=== PATIENT | male | born 1965 | race Hispanic/Latino ===

== ENCOUNTER 2017-01-04 19:46 | Inpatient (IN) | payer MEDICAID ==
[2017-01-04 19:48] VITALS: BMI 35.4
[2017-01-04 20:12] LABS: ADD MANUAL DIFF? NO
[2017-01-04 20:19] LABS: BASO # 0.03 K/mm3 (0.0-2.0); BASO % 0.3 % (0.0-3.0); EOS # 0.1 (0.0-0.7); EOS % 1.2 % (1.5-5.0); GRAN # 6.27 (1.4-6.5); GRAN % 69.5 % (50.0-68.0); LYMPH # 1.7 (1.2-3.4); LYMPH % 19.2 % (22.0-35.0); MEAN CELL VOLUME 85.2 fL (80.0-105.0); MEAN CORPUSCULAR HEMOGLOBIN 29.1 pg (25.0-35.0); MEAN CORPUSCULAR HGB CONC 34.1 g/dl (31.0-37.0); MEAN PLATELET VOLUME 9.7 fl (7.0-11.0); MONO # 0.9 (0.1-0.6); MONO % 9.8 % (1.0-6.0); PLATELET COUNT 294 10^3/uL (120.0-450.0); RED CELL DISTRIBUTION WIDTH 13.6 % (11.5-14.5)
--- NOTE | 2017-01-04 20:20 | ED PDOC ---
Arrival/HPI - General Chief Complaint: Chest Pain Time Seen by Provider: 01/04/17 19:49 Historian: Patient - History of Present Illness Narrative History of Present Illness (Text): 01/04/17 20:22 An 81 year old female, whose past medical history includes hypertension, presents to the emergency department complaining of chest pain worsening since yesterday. Patient describes it left sided squeezing pain. Patient notes had taken a stress test 10 years ago, which was negative. Patient reports dyspnea but denies any cough, fevers or any other complaints at this time. Patient noted taken aspirin and nitro prior to arrival. Time/Duration: Other (yesterday) Symptom Onset: Sudden Symptom Course: Unchanged Activities at Onset: Rest Context: Home Past Medical History - Provider Review Nursing Documentation Reviewed: Yes - Pulmonary Hx Respiratory Disorders: No - Neurological Hx Neurological Disorder: No - Hematological/Oncological Hx Blood Disorders: No - Integumentary Hx Dermatological Disorder: No - Musculoskeletal/Rheumatological Hx Musculoskeletal Disorders: No - Gastrointestinal Hx Gastrointestinal Disorders: No - Genitourinary/Gynecological Hx Genitourinary Disorders: No - Psychiatric Hx Psychophysiologic Disorder: No Hx Substance Use: No - Anesthesia Hx Anesthesia: No Family/Social History - Physician Review Nursing Documentation Reviewed: Yes Family/Social History: No Known Family HX Smoking Status: Never Smoked Hx Alcohol Use: No Hx Substance Use: No Allergies/Home Meds Allergies/Adverse Reactions: Allergies No Known Allergies Allergy (Verified 01/04/17 19:48) Home Medications: Home Meds Medication Instructions Recorded Confirmed No Known Home Med 01/04/17 01/04/17 Review of Systems - Review of Systems Constitutional: Normal. absent: Fevers Eyes: Normal ENT: Normal Respiratory: absent: Cough Cardiovascular: Chest Pain, Other (dyspnea) Gastrointestinal: Normal Genitourinary Male: Normal Musculoskeletal: Normal Skin: Normal Neurological: Normal Endocrine: Normal Hemo/Lymphatic: Normal Psychiatric: Normal Physical Exam Vital Signs Reviewed: Yes Vital Signs Temp Pulse Resp BP Pulse Ox 01/04/17 19:56 99.3 F 16 L 112 H 108/69 94 L Temperature: Afebrile Blood Pressure: Normal Pulse: Tachycardic Respiratory Rate: Normal Appearance: Positive for: Non-Toxic, Comfortable, Other (obese) Pain Distress: None Mental Status: Positive for: Alert and Oriented X 3 - Systems Exam Head: Present: Atraumatic, Normocephalic Pupils: Present: PERRL Extroacular Muscles: Present: EOMI Conjunctiva: Present: Normal Mouth: Present: Moist Mucous Membranes Neck: Present: Normal Range of Motion Respiratory/Chest: Present: Clear to Auscultation, Good Air Exchange. No: Respiratory Distress, Accessory Muscle Use Cardiovascular: Present: Regular Rate and Rhythm, Normal S1, S2. No: Murmurs Abdomen: Present: Normal Bowel Sounds. No: Tenderness, Distention, Peritoneal Signs Back: Present: Normal Inspection Upper Extremity: Present: Normal Inspection. No: Cyanosis, Edema Lower Extremity: Present: Normal Inspection. No: Edema Neurological: Present: GCS=15, CN II-XII Intact, Speech Normal Skin: Present: Warm, Dry, Normal Color. No: Rashes Psychiatric: Present: Alert, Oriented x 3, Normal Insight, Normal Concentration Medical Decision Making ED Course and Treatment: 01/04/17 20:16 Impression: A 51 year old male with chest pain. Differential Diagnosis included but are not limited to: r/o acs, pe. Plan: -- EKG -- chest xray -- labs -- Urinalysis -- Reassess and disposition Progress Notes: Patient noted had taken aspirin and nitro [facility]. On reassessment, heparin started. Patient is pain free. Dr. Brannon accepts patient to be admitted to Telemetry. dimer neg. pe less likely 01/04/17 22:34 - Lab Interpretations Lab Results: 01/04/17 20:03 01/04/17 20:03 Lab Results 01/04/17 21:15: Urine Color Yellow, Urine Appearance Sl cloudy, Urine pH 6.0, Ur Specific [place] >= 1.030, Urine Protein 30 H, Urine Glucose (UA) Negative, Urine Ketones Negative, Urine Blood Large H, Urine Nitrate Negative, Urine Bilirubin Negative, Urine Urobilinogen 0.2, Ur Leukocyte Esterase Trace H, Urine RBC Tntc, Urine WBC 15 - 20, Ur Epithelial Cells 0 - 2, Calcium Oxalate Crystal Few, Urine Bacteria Few 01/04/17 20:52: PT 10.7, INR 0.99, APTT 28.5, D-Dimer, Quantitative 0.35 01/04/17 20:03: Sodium 138, Potassium 4.2, Chloride 102, Carbon Dioxide 27, Anion Gap 13, BUN 14, Creatinine 0.9, Est GFR ( Amer) > 60, Est GFR (Non- Af Amer) > 60, Random Glucose 110, Calcium 9.4, Magnesium 1.8, Total Bilirubin 0.4, AST 39, ALT 52, Alkaline Phosphatase 77, Lactate Dehydrogenase 457, Total Creatine Kinase 138, Troponin I 0.24 H*, NT-Pro-B Natriuret Pep 67.5, Total Protein 8.2, Albumin 4.5, Globulin 3.7, Albumin/Globulin Ratio 1.2 01/04/17 20:03: WBC 9.0, RBC 4.81, Hgb 14.0, Hct 41.0 L, MCV 85.2, MCH 29.1, MCHC 34.1, RDW 13.6, Plt Count 294, MPV 9.7, Gran % 69.5 H, Lymph % (Auto) 19.2 L, [place] % (Auto) 9.8 H, Eos % (Auto) 1.2 L, Baso % (Auto) 0.3, Gran # 6.27, Lymph # 1.7, [place] # 0.9 H, Eos # 0.1, Baso # 0.03 I have reviewed the lab results: Yes - RAD Interpretation Radiology Orders: 01/04/17 19:59 CHEST PORTABLE [RAD] Stat - EKG Interpretation Interpreted by ED Physician: Yes Type: 12 lead EKG - Medication Orders Current Medication Orders: Acetaminophen (Tylenol 325mg Tab) 650 mg PO Q6H PRN PRN Reason: Fever >100.4 F Aspirin (Ecotrin) 81 mg PO DAILY [facility] Atorvastatin Calcium (Lipitor) 80 mg PO DIN [facility] Heparin Sodium/Sodium Chloride (Heparin 46369 Units/250ml 1/2 Normal Saline) 25 ,000 units in 250 mls @ 13.063 mls/hr IV .Q19H9M [facility]; 12 UNITS/KG/HR PRN Reason: Protocol Dextrose/Sodium Chloride (Dextrose 5%/0.9% Ns 1000 Ml) 1,000 mls @ 80 mls/hr IV .[id number] [facility] Famotidine (Pepcid 20mg/50ml Premix) 20 mg in 50 mls @ 100 mls/hr IV Q12 [facility] Lisinopril (Zestril) 2.5 mg PO DAILY [facility] Metoprolol Tartrate (Lopressor) 25 mg PO 0800,1800 [facility] Nitroglycerin (Nitrostat Sl Tab) 0.3 mg SL Q5M PRN PRN Reason: Chest pain Discontinued Medications Clopidogrel Bisulfate (Plavix) 300 mg PO STAT STA Stop: 01/04/17 21:48 Heparin Sodium (Porcine) (Heparin) 4,000 units IV ONCE ONE PRN Reason: Protocol Stop: 01/04/17 21:18 Morphine Sulfate (Morphine) 2 mg IVP STAT STA Stop: 01/04/17 21:41 Nitroglycerin (Nitrostat Sl Tab) 0.3 mg SL STAT STA Stop: 01/04/17 21:40 - Scribe Statement The provider has reviewed the documentation as recorded by the Brenda Stack Provider Scribe Attestation: All medical record entries made by the Brenda were at my direction and personally dictated by me. I have reviewed the chart and agree that the record accurately reflects my personal performance of the history, physical exam, medical decision making, and the department course for this patient. I have also personally directed, reviewed, and agree with the discharge instructions and disposition. Disposition/Present on Arrival - Present on Arrival Any Indicators Present on Arrival: No History of DVT/PE: No History of Uncontrolled Diabetes: No Urinary Catheter: No History of Decub. Ulcer: No History Surgical Site Infection Following: None - Disposition Have Diagnosis and Disposition been Completed?: Yes Diagnosis: NSTEMI (non-ST elevated myocardial infarction) Disposition: HOSPITALIZED Disposition Time: 22:35 Condition: FAIR
[2017-01-04 20:30] LABS: ALB/GLOB RATIO 1.2 (1.1-1.8); ALKALINE PHOSPHATASE 77 U/L (38-133); ALT/SGPT 52 U/L (7-56); AST/SGOT 39 U/L (15-59); BILIRUBIN,TOTAL 0.4 mg/dL (0.2-1.3); BLOOD UREA NITROGEN 14 mg/dL (7-21); CALCIUM 9.4 mg/dL (8.4-10.5); CARBON DIOXIDE 27 mmol/L (21-33); CHLORIDE 102 mmol/L (98-107); GFR AFRICAN-AMERICAN > 60; GLUCOSE,RANDOM 110 mg/dL (70-110); MAGNESIUM 1.8 mg/dL (1.7-2.2); POTASSIUM 4.2 mmol/L (3.6-5.0); SODIUM 138 mmol/L (132-148); TOTAL PROTEIN 8.2 g/dL (5.8-8.3)
[2017-01-04 20:44] LABS: TROPONIN I 0.24 ng/mL
[2017-01-04 21:14] LABS: INR 0.99 (0.93-1.08); PARTIAL THROMBOPLASTIN TIME 28.5 Seconds (23.7-30.8)
[2017-01-04 21:16] LABS: D DIMER 0.35 mg/L FEU (0-0.50)
[2017-01-04] MEDS ORDERED: Heparin25000 units/250ml 1/2NS 25,000 UNITS/250 ML BAG IV SCH (21:30)
[2017-01-04] MEDS ORDERED: Morphine 2 mg/ml ISec IVP STA (21:40)
[2017-01-04 21:41] LABS: URINE BILIRUBIN NEGATIVE (NEGATIVE); URINE BLOOD LARGE (NEGATIVE); URINE GLUCOSE (UA) NEGATIVE (NEGATIVE); URINE KETONE NEGATIVE (NEGATIVE); URINE LEUKOCYTE ESTERASE TRACE Leu/uL (NEGATIVE); URINE PROTEIN 30 mg/dL (<30 mg/dL); URINE UROBILINOGEN 0.2 E.U./dL (<1 E.U./dL)
--- NOTE | 2017-01-04 21:43 | CP.PCM.HP ---
History of Present Illness - History of Present Illness History of Present Illness: Pt is a 51yo M who has no previous medical history who is presenting to the hospital for a 2d history of constant left sided chest pain that woke him up from sleep. He denies diaphoresis, N/V/D, OLIVARES, SOB, abdominal pain, leg swelling , loss of exercise tolerance, weight loss, night sweats. FamHx: Father 70's heart attack, mother quadruple bypass in her 50's Surgeries: Denies Allergies: Denies Meds: Denies Social: lives with son, denies illicit drugs/drinking/smoking In the ED he was found to have a troponin of .24. He was started on a heparin drip, given plavix loading dose, beta dany, statin, and JO. He will be admitted to telemetry for NSTEMI. Present on Admission - Present on Admission Any Indicators Present on Admission: No History of DVT/PE: No History of Uncontrolled Diabetes: No Urinary Catheter: No Decubitus Ulcer Present: No Review of Systems - Review of Systems All systems: reviewed and no additional remarkable complaints except Past Patient History - Past Social History Smoking Status: Never Smoked - PULMONARY Hx Respiratory Disorders: No - NEUROLOGICAL Hx Neurological Disorder: No - HEMATOLOGICAL/ONCOLOGICAL Hx Blood Disorders: No - INTEGUMENTARY Hx Dermatological Problems: No - MUSCULOSKELETAL/RHEUMATOLOGICAL Hx Musculoskeletal Disorders: No - GASTROINTESTINAL Hx Gastrointestinal Disorders: No - GENITOURINARY/GYNECOLOGICAL Hx Genitourinary Disorders: No - PSYCHIATRIC Hx Psychophysiologic Disorder: No Hx Substance Use: No - SURGICAL HISTORY Hx Surgeries: No - ANESTHESIA Hx Anesthesia: No Meds Allergies/Adverse Reactions: Allergies Allergy/AdvReac Type Severity Reaction Status Date / Time No Known Allergies Allergy Verified 01/04/17 19:48 Physical Exam - Constitutional Appears: Well, Non-toxic Additional comments: Eating in bed even though i repeatedly told him that he was NPO; patient states "he is hungry" - Head Exam Head Exam: ATRAUMATIC, NORMAL INSPECTION - Eye Exam Eye Exam: EOMI - ENT Exam ENT Exam: Mucous Membranes Moist - Neck Exam Neck exam: Positive for: Full Rom. Negative for: Lymphadenopathy - Respiratory Exam Respiratory Exam: Clear to Auscultation Bilateral, NORMAL BREATHING PATTERN. absent: Rales, Rhonchi, Wheezes - Cardiovascular Exam Cardiovascular Exam: REGULAR RHYTHM, +S1, +S2 - GI/Abdominal Exam GI & Abdominal Exam: Normal Bowel Sounds, Soft. absent: Tenderness Additional comments: obese abdomen - Rectal Exam Rectal Exam: Deferred - Extremities Exam Extremities exam: Positive for: full ROM, normal inspection. Negative for: calf tenderness, pedal edema, tenderness Additional comments: pain in b/l heels - Back Exam Back exam: absent: CVA tenderness (L), CVA tenderness (R) - Neurological Exam Neurological exam: Alert, CN II-XII Intact, Oriented x3, Reflexes Normal - Psychiatric Exam Psychiatric exam: Normal Affect, Normal Mood (does not seem to have very good insight into the fact that he is indeed having a heart attack and should not be eating a meal before having a cath or the possibility that his condition might change ) - Skin Skin Exam: Warm Results - Vital Signs Recent Vital Signs: Last Vital Signs Temp 99.3 F 01/04/17 19:56 Pulse 16 L 01/04/17 19:56 Resp 112 H 01/04/17 19:56 BP 108/69 01/04/17 19:56 Pulse Ox 94 L 01/04/17 19:56 - Labs Result Diagrams: 01/04/17 20:03 01/04/17 20:03 Labs: Laboratory Results - last 24 hr 01/04/17 01/04/17 01/04/17 20:03 20:03 20:52 WBC 9.0 RBC 4.81 Hgb 14.0 Hct 41.0 L MCV 85.2 MCH 29.1 MCHC 34.1 RDW 13.6 Plt Count 294 MPV 9.7 Gran % 69.5 H Lymph % (Auto) 19.2 L [place] % (Auto) 9.8 H Eos % (Auto) 1.2 L Baso % (Auto) 0.3 Gran # 6.27 Lymph # 1.7 [place] # 0.9 H Eos # 0.1 Baso # 0.03 PT 10.7 INR 0.99 APTT 28.5 D-Dimer, Quantitative 0.35 Sodium 138 Potassium 4.2 Chloride 102 Carbon Dioxide 27 Anion Gap 13 BUN 14 Creatinine 0.9 Est GFR ( Amer) > 60 Est GFR (Non-Af Amer) > 60 Random Glucose 110 Calcium 9.4 Magnesium 1.8 Total Bilirubin 0.4 AST 39 ALT 52 Alkaline Phosphatase 77 Lactate Dehydrogenase 457 Total Creatine Kinase 138 Troponin I 0.24 H* NT-Pro-B Natriuret Pep 67.5 Total Protein 8.2 Albumin 4.5 Globulin 3.7 Albumin/Globulin Ratio 1.2 Assessment & Plan - Assessment and Plan (Free Text) Assessment: 51yo M admitted for NSTEMI NSTEMI -Heparin Drip, Plavix loading dose given; monitor PTT -Aspirin 325 given in ambulance, as well as nitro which relieved pain -JO, Statin, Beta dany given in ED; will be continued -Troponin .25, trend troponins -Telemetry -Cardiology Consult: Latricia for Cath in AM -echo ordered Proph -Heparin Drip -Pepcid IV -NPO for cath (patient keeps sneaking food, please make sure he does not eat) -f/u health maintenance exams Lipid Panel, TSH/Free T4, drug screen, Hepatitis, HIV, RPR Dr. Hector Soliz Case Discussed with Dr. Newton Brannon Decision To Admit - Pt Status Changed To: Hospital Disposition Of: Inpatient Admission - Admit Certification Admit to Inpatient:: After my assessment, the patient will require hospitalization for at least two midnights. This is because of the severity of symptoms shown, intensity of services needed, and/or the medical risk in this patient being treated as an outpatient. - . Bed Request Type: Telemetry Admitting Physician: Nina Brannon
[2017-01-04 21:46] LABS: URINE APPEARANCE SL CLOUDY (CLEAR); URINE COLOR YELLOW (YELLOW)
[2017-01-04 21:47] LABS: URINE RBC TNTC /hpf (0-2); URINE WBC 15 - 20 /hpf (0-6)
[2017-01-04 21:48] LABS: URINE BACTERIA FEW (NEG); URINE CALCIUM OXALATE CRYSTALS FEW /hpf; URINE EPITHELIAL CELLS 0 - 2 /hpf (0-5)
[2017-01-04] MEDS ORDERED: Famotidine 20mg/50ml 20 MG/50 ML BAG IV SCH (22:00)
[2017-01-04] MEDS: Dextrose 5%/0.9% NS 1,000 ML IV SCH (23:19)
[2017-01-05 04:36] LABS: ADD MANUAL DIFF? NO
[2017-01-05 04:42] LABS: ALB/GLOB RATIO 1.2 (1.1-1.8); ALKALINE PHOSPHATASE 82 U/L (38-133); ALT/SGPT 49 U/L (7-56); AST/SGOT 39 U/L (15-59); BILIRUBIN,TOTAL 0.3 mg/dL (0.2-1.3); BLOOD UREA NITROGEN 16 mg/dL (7-21); CALCIUM 9.1 mg/dL (8.4-10.5); CARBON DIOXIDE 26 mmol/L (21-33); CHLORIDE 105 mmol/L (98-107); GFR AFRICAN-AMERICAN > 60; GLUCOSE,RANDOM 99 mg/dL (70-110); POTASSIUM 3.7 mmol/L (3.6-5.0); SODIUM 140 mmol/L (132-148); TOTAL PROTEIN 7.1 g/dL (5.8-8.3)
[2017-01-05 04:49] LABS: CHOLESTEROL 156 mg/dL (130-200)
[2017-01-05 04:50] LABS: HEMATOCRIT 39.8 % (42.0-52.0); MEAN CELL VOLUME 85.6 fL (80.0-105.0); MEAN CORPUSCULAR HEMOGLOBIN 28.4 pg (25.0-35.0); MEAN CORPUSCULAR HGB CONC 33.2 g/dl (31.0-37.0); PLATELET COUNT 248 10^3/uL (120.0-450.0); RED CELL DISTRIBUTION WIDTH 14.1 % (11.5-14.5); WHITE BLOOD COUNT 8.1 10^3/ul (4.5-11.0)
[2017-01-05 04:51] LABS: BASO # 0.03 K/mm3 (0.0-2.0); BASO % 0.4 % (0.0-3.0); EOS # 0.2 (0.0-0.7); EOS % 2.1 % (1.5-5.0); GRAN # 4.82 (1.4-6.5); GRAN % 59.5 % (50.0-68.0); LYMPH # 2.2 (1.2-3.4); MEAN PLATELET VOLUME 10.5 fl (7.0-11.0); MONO # 0.9 (0.1-0.6)
[2017-01-05 05:41] LABS: TROPONIN I 0.66 ng/mL
--- NOTE | 2017-01-05 10:03 | RAD ---
HISTORY: Chest pain. Portable study 08:15 COMPARISON: No prior. FINDINGS: LUNGS: No active pulmonary disease. PLEURA: No significant pleural effusion identified, no pneumothorax apparent. CARDIOVASCULAR: No radiographic findings to suggest acute or significant cardiovascular disease. OSSEOUS STRUCTURES: No significant abnormalities. VISUALIZED UPPER ABDOMEN: Normal. OTHER FINDINGS: None. IMPRESSION: No active disease.
--- NOTE | 2017-01-05 10:26 | CARD ---
APPROVED REPORT EKG Measurement Heart [id number] NM 150P7 [id number] <Conclusion> Sinus tachycardia Nonspecific T wave abnormality PRWP Leftward axis
[2017-01-05] MEDS: Dextrose 5%/0.9% NS 1,000 ML IV SCH (10:27)
--- NOTE | 2017-01-05 11:18 | CON ---
DATE: 01/05/2017 (For Dr. Romero.) HISTORY OF PRESENT ILLNESS: The patient is a 51-year-old male who presents with 2 days of substernal classic angina. He was found to have elevated troponins consistent with a non-STEMI. PAST MEDICAL HISTORY: Free of cardiac risk factors of hypertension and diabetes mellitus. He is on no medications. His main cardiac risk factor is a strong family history for CAD with the mother and father both with coronary artery disease. He is a former smoker who stopped years ago. His past medical history is free of peptic ulcer disease or bleeding disorder. SOCIAL HISTORY: He is a former smoker. REVIEW OF SYSTEMS: A 14-point review of systems was reviewed in detail. Other than the angina which is much better on medical therapy now, the patient is free of cardiac symptomatology. PHYSICAL EXAMINATION: VITAL SIGNS: Blood pressure is 126/90, the heart rate is in the 70s. NECK: Negative JVD. LUNGS: Without rales. HEART: Reveals S1, S2. EXTREMITIES: Without edema. The EKG shows nonspecific ST-T changes. LABORATORIES: Troponins are 0.24 up to 0.66 today. His triglycerides are 249. Hemoglobin is 13.2. IMPRESSION: 1. Non-ST elevation myocardial infarction. 2. Unstable angina. 3. High probability for coronary artery disease. 4. Hypertriglyceridemia. 5. Strong family history for coronary artery disease. Given these findings, we will change his medications to aspirin, Plavix, beta blockers, statin therap y. I have discussed with the patient about the need for cardiac catheterization. We will discuss wi th Dr. Romero about arranging for cardiac catheterization on Saturday. Chaitanya Ortega MD cc: [id number] TT: 01/05/2017 11:17:31 Confirmation # [id number] Dictation # [id number]
[2017-01-05] MEDS: Enoxaparin 100 mg Syringe SC SCH ×2 (11:35→22:46)
--- NOTE | 2017-01-05 13:31 | CP.PCM.PN ---
Addendum entered and electronically signed by Boni Washington DO 01/05/17 13:33 : Subjective section added in error. Mr. Garsia was seen and examined this morning. He is no longer complaining of chest pain. He denies shortness of breath, n/v/d, diaphoresis. He will be evaluated by cardiology today for possible cath. Original Note: <Boni Washington - Last Filed: 01/05/17 13:25> Subjective - Date & Time of Evaluation Date of Evaluation: 01/05/17 Time of Evaluation: 13:26 - Subjective Subjective: Patient seen at bedside. States last drink was yesterday morning. States he typically experiences withdrawal symptoms. He is not tremulous, tachycardic or hypertensive at this time. States chest pain presented while doing pushups which has now resolved. Objective - Vital Signs/Intake and Output Vital Signs (last 24 hours): Temp Pulse Resp BP Pulse Ox 98 F 87 18 147/101 H 96 01/05/17 11:28 01/05/17 11:28 01/05/17 11:28 01/05/17 11:28 01/05/17 04:00 Intake and Output: 01/05/17 01/05/17 06:59 18:59 Intake Total 220 Output Total 50 Balance 170 - Medications Medications: Current Medications Acetaminophen (Tylenol 325mg Tab) 650 mg PO Q6H PRN PRN Reason: Fever >100.4 F Last Admin: 01/05/17 01:56 Dose: 650 mg Aspirin (Ecotrin) 81 mg PO DAILY [facility] Last Admin: 01/05/17 10:27 Dose: 81 mg Atorvastatin Calcium (Lipitor) 80 mg PO DIN [facility] Last Admin: 01/04/17 22:35 Dose: 80 mg Clopidogrel Bisulfate (Plavix) 75 mg PO DAILY [facility] Enoxaparin Sodium (Lovenox) 100 mg SC Q12H [facility] PRN Reason: Protocol Last Admin: 01/05/17 11:35 Dose: 100 mg Ibuprofen (Motrin Tab) 600 mg PO Q6H PRN PRN Reason: mild pain Lisinopril (Zestril) 2.5 mg PO DAILY [facility] Last Admin: 01/05/17 10:27 Dose: 2.5 mg Metoprolol Tartrate (Lopressor) 25 mg PO BID [facility] Last Admin: 01/05/17 10:28 Dose: 25 mg Nitroglycerin (Nitrostat Sl Tab) 0.3 mg SL Q5M PRN PRN Reason: Chest pain - Labs Labs: 01/05/17 04:20 01/05/17 04:05 PT 10.7 Seconds (9.9-11.8) 01/04/17 20:52 INR 0.99 (0.93-1.08) 01/04/17 20:52 APTT 37.8 Seconds (23.7-30.8) H 01/05/17 04:20 - Constitutional Appears: No Acute Distress - Head Exam Head Exam: ATRAUMATIC, NORMOCEPHALIC - Eye Exam Eye Exam: EOMI, PERRL - ENT Exam ENT Exam: Mucous Membranes Moist - Neck Exam Neck Exam: Full ROM. absent: Lymphadenopathy - Respiratory Exam Respiratory Exam: Clear to Ausculation Bilateral. absent: Rales, Rhonchi, Wheezes - Cardiovascular Exam Cardiovascular Exam: REGULAR RHYTHM, +S1, +S2 - GI/Abdominal Exam GI & Abdominal Exam: Soft. absent: Distended, Tenderness - Extremities Exam Extremities Exam: absent: Calf Tenderness, Pedal Edema - Neurological Exam Neurological Exam: Alert, Awake, Oriented x3 - Psychiatric Exam Psychiatric exam: Normal Affect, Normal Mood. absent: Anxious - Skin Skin Exam: Dry, Warm Assessment and Plan - Assessment and Plan (Free Text) Assessment: 51yo M presents with chest pain found to have NSTEMI. He is now asymptomatic. Further cardiology w/u to follow. Patient will undergo cardiac catheterization Saturday with Dr. Romero. NSTEMI -Heparin Drip, Plavix loading dose given - started on Aspirin, beta dany, statin - cardiology following -Telemetry -echo results pending Proph -Heparin Drip -Pepcid IV <Lucia Brannon - Last Filed: 01/05/17 16:07> Objective - Vital Signs/Intake and Output Vital Signs (last 24 hours): Temp Pulse Resp BP Pulse Ox 98 F 87 18 147/101 H 96 01/05/17 11:28 01/05/17 11:28 01/05/17 11:28 01/05/17 11:28 01/05/17 04:00 Intake and Output: 01/05/17 01/05/17 06:59 18:59 Intake Total 220 300 Output Total 50 600 Balance 170 -300 - Medications Medications: Current Medications Acetaminophen (Tylenol 325mg Tab) 650 mg PO Q6H PRN PRN Reason: Fever >100.4 F Last Admin: 01/05/17 01:56 Dose: 650 mg Aspirin (Ecotrin) 81 mg PO DAILY [facility] Last Admin: 01/05/17 10:27 Dose: 81 mg Atorvastatin Calcium (Lipitor) 80 mg PO DIN [facility] Last Admin: 01/04/17 22:35 Dose: 80 mg Clopidogrel Bisulfate (Plavix) 75 mg PO DAILY [facility] Enoxaparin Sodium (Lovenox) 100 mg SC Q12H [facility] PRN Reason: Protocol Last Admin: 01/05/17 11:35 Dose: 100 mg Ibuprofen (Motrin Tab) 600 mg PO Q6H PRN PRN Reason: mild pain Lisinopril (Zestril) 2.5 mg PO DAILY [facility] Last Admin: 01/05/17 10:27 Dose: 2.5 mg Metoprolol Tartrate (Lopressor) 25 mg PO BID [facility] Last Admin: 01/05/17 10:28 Dose: 25 mg Nitroglycerin (Nitrostat Sl Tab) 0.3 mg SL Q5M PRN PRN Reason: Chest pain - Labs Labs: 01/05/17 04:20 01/05/17 04:05 PT 10.7 Seconds (9.9-11.8) 01/04/17 20:52 INR 0.99 (0.93-1.08) 01/04/17 20:52 APTT 37.8 Seconds (23.7-30.8) H 01/05/17 04:20 Attending/Attestation - Attestation I have personally seen and examined this patient.: Yes I have fully participated in the care of the patient.: Yes I have reviewed all pertinent clinical information, including history, physical exam and plan: Yes Notes (Text): I have seen and examined the patient at bedside. This is 51 year old male with family history of CAD, remote history of HTN and atrial fibrillation (was on anticoagulation 2 years ago and stopped on his own ) who was admitted last night for evaluation of chest pain and found to have NSTEMI. Troponins are elevated. Patient is on aspirin, plavix, lopressor, lisinopril, lovenox and lipitor. TG are 249. Discussed with Dr Ortega who is covering Dr Romero. There is a possible plan for cardiac cath on Saturday. Echo result is pending. Upon discharge patient will follow up with Dr Dawn. Dr Lucia Brannon
--- NOTE | 2017-01-06 07:22 | CP.PCM.PN ---
<Layla Anne - Last Filed: 01/06/17 11:07> Subjective - Date & Time of Evaluation Date of Evaluation: 01/06/17 Time of Evaluation: 10:00 - Subjective Subjective: Pt was seen and examined in chair. Pt was found to be resting comfortably. No current complaints of chest pains. Pt denied any acute complaints and no acute or adverse events overnight as per nursing staff. Pt denied fever, chills, sob, chest pains, abdominal pains, n/v/d/c or urinary symptoms. Pt for cardiac catheterization tomorrow. Objective - Vital Signs/Intake and Output Vital Signs (last 24 hours): Temp Pulse Resp BP Pulse Ox 98 F 73 16 135/88 99 01/05/17 17:19 01/06/17 02:00 01/05/17 17:19 01/05/17 17:27 01/05/17 17:19 Intake and Output: 01/06/17 01/06/17 06:59 18:59 Intake Total 480 Output Total 450 Balance 30 - Medications Medications: Current Medications Acetaminophen (Tylenol 325mg Tab) 650 mg PO Q6H PRN PRN Reason: Fever >100.4 F Last Admin: 01/05/17 01:56 Dose: 650 mg Aspirin (Ecotrin) 81 mg PO DAILY [facility] Last Admin: 01/05/17 10:27 Dose: 81 mg Atorvastatin Calcium (Lipitor) 80 mg PO DIN [facility] Last Admin: 01/05/17 17:27 Dose: 80 mg Clopidogrel Bisulfate (Plavix) 75 mg PO DAILY [facility] Enoxaparin Sodium (Lovenox) 100 mg SC Q12H [facility] PRN Reason: Protocol Last Admin: 01/05/17 22:46 Dose: 100 mg Ibuprofen (Motrin Tab) 600 mg PO Q6H PRN PRN Reason: mild pain Lisinopril (Zestril) 2.5 mg PO DAILY [facility] Last Admin: 01/05/17 10:27 Dose: 2.5 mg Metoprolol Tartrate (Lopressor) 25 mg PO BID [facility] Last Admin: 01/05/17 17:27 Dose: 25 mg Nitroglycerin (Nitrostat Sl Tab) 0.3 mg SL Q5M PRN PRN Reason: Chest pain - Labs Labs: 01/05/17 04:20 01/05/17 04:05 PT 10.7 Seconds (9.9-11.8) 01/04/17 20:52 INR 0.99 (0.93-1.08) 01/04/17 20:52 APTT 37.8 Seconds (23.7-30.8) H 01/05/17 04:20 - Constitutional Appears: No Acute Distress - Head Exam Head Exam: ATRAUMATIC, NORMAL INSPECTION, NORMOCEPHALIC - Eye Exam Eye Exam: EOMI, Normal appearance, PERRL Pupil Exam: NORMAL ACCOMODATION, PERRL - ENT Exam ENT Exam: Mucous Membranes Moist, Normal Exam - Neck Exam Neck Exam: Full ROM, Normal Inspection. absent: Lymphadenopathy - Respiratory Exam Respiratory Exam: Clear to Ausculation Bilateral, NORMAL BREATHING PATTERN - Cardiovascular Exam Cardiovascular Exam: REGULAR RHYTHM, +S1, +S2. absent: Murmur - GI/Abdominal Exam GI & Abdominal Exam: Soft, Normal Bowel Sounds. absent: Tenderness - Extremities Exam Extremities Exam: Full ROM, Normal Capillary Refill, Normal Inspection. absent : Joint Swelling, Pedal Edema - Back Exam Back Exam: NORMAL INSPECTION - Neurological Exam Neurological Exam: Alert, Awake, CN II-XII Intact, Normal Gait, Oriented x3 - Psychiatric Exam Psychiatric exam: Normal Affect, Normal Mood - Skin Skin Exam: Dry, Intact, Normal Color, Warm Assessment and Plan - Assessment and Plan (Free Text) Assessment: 51 M with PMHx of afib previously on AC (not currently) and HTN presents with chest pain found to have NSTEMI. He is now asymptomatic. Patient will undergo cardiac catheterization Saturday with Dr. Romero. NSTEMI -Heparin Drip, Plavix loading dose given - started on aspirin, plavix, lopressor, lisinopril, lovenox and lipitor - cardiology following, Dr. Romero -Telemetry -echo Demonstrated EF 32% - Heart Healthy Diet - T Proph -Heparin Drip -Pepcid IV Seen reviewed and discussed with attending <Lucia Brannon - Last Filed: 01/06/17 16:59> Objective - Vital Signs/Intake and Output Vital Signs (last 24 hours): Temp Pulse Resp BP Pulse Ox 97 F L 96 H 18 133/79 99 01/06/17 11:18 01/06/17 11:18 01/06/17 11:18 01/06/17 11:18 01/05/17 17:19 Intake and Output: 01/06/17 01/06/17 06:59 18:59 Intake Total 480 360 Output Total 450 500 Balance 30 -140 - Medications Medications: Current Medications Acetaminophen (Tylenol 325mg Tab) 650 mg PO Q6H PRN PRN Reason: Fever >100.4 F Last Admin: 01/06/17 08:27 Dose: 650 mg Aspirin (Ecotrin) 81 mg PO DAILY [facility] Last Admin: 01/06/17 09:39 Dose: 81 mg Atorvastatin Calcium (Lipitor) 80 mg PO DIN [facility] Last Admin: 01/05/17 17:27 Dose: 80 mg Clopidogrel Bisulfate (Plavix) 75 mg PO DAILY [facility] Last Admin: 01/06/17 09:39 Dose: 75 mg Lisinopril (Zestril) 2.5 mg PO DAILY [facility] Last Admin: 01/06/17 09:39 Dose: 2.5 mg Metoprolol Tartrate (Lopressor) 25 mg PO BID [facility] Last Admin: 01/06/17 09:39 Dose: 25 mg Nitroglycerin (Nitrostat Sl Tab) 0.3 mg SL Q5M PRN PRN Reason: Chest pain - Labs Labs: 01/06/17 11:29 01/06/17 11:29 PT 10.7 Seconds (9.9-11.8) 01/04/17 20:52 INR 0.99 (0.93-1.08) 01/04/17 20:52 APTT 37.8 Seconds (23.7-30.8) H 01/05/17 04:20 Attending/Attestation - Attestation I have personally seen and examined this patient.: Yes I have fully participated in the care of the patient.: Yes I have reviewed all pertinent clinical information, including history, physical exam and plan: Yes Notes (Text): I have seen and examined the patient at bedside. This is 51 year old male with family history of CAD, remote history of HTN and atrial fibrillation (was on anticoagulation 2 years ago and stopped on his own ) who was admitted 2 days ago for evaluation of chest pain and found to have NSTEMI. Serial Troponins are elevated. Patient is on aspirin, plavix, lopressor, lisinopril and lipitor. TG are 249. Discussed with Dr Ortega who is covering Dr Nick. There is a possible plan for cardiac cath tomorrow. Lovenox stopped. Patient will be npo past midnight. Echo revealed EF of 32%. Upon discharge patient will follow up with Dr Dawn. Dr Lucia Brannon
--- NOTE | 2017-01-06 09:18 | CARD ---
APPROVED REPORT EXAM: Two-dimensional and M-mode echocardiogram with Doppler and color Doppler. Other Information Quality : FairRhythm : INDICATION NSTEMI 2D DIMENSIONS IVSd1.2 (0.7-1.1cm)LVDd4.7 (3.9-5.9cm) PWd1.2 (0.7-1.1cm)LVDs4.0 (2.5-4.0cm) FS (%) 15.0 %LVEF (%)32.0 (>50%) M-Mode DIMENSIONS Left Atrium (MM)3.70 (2.5-4.0cm)Aortic Root3.60 (2.2-3.7cm) Aortic Cusp Exc.2.60 (1.5-2.0cm) Aortic Valve AoV Peak Tlhmmsgn056.0cm/s Mitral Valve MV E Apmgbtop93.7cm/sMV A Fjccvaqd68.0cm/sE/A ratio0.8 TDI Lateral E' Peak V8.09cm/sMedial E' Peak V5.56cm/sE/Lateral E'7.8 E/Medial E'11.3 Tricuspid Valve TR Peak [id number]/sRAP [id number] Peak Gr.16mmHg [id number] LEFT VENTRICLE The left ventricle is normal size. There is normal left ventricular wall thickness. Left ventricle systolic function is mildly impaired. The Ejection Fraction is -40%. There is mild global hypokinesis. The apex appears akinetic. ATRIA The left atrium size is normal. The right atrium size is normal. The interatrial septum is intact with no evidence for an atrial septal defect. AORTIC VALVE The aortic valve is normal in structure. MITRAL VALVE The mitral valve is normal in structure. TRICUSPID VALVE The tricuspid valve is normal in structure. There is trace tricuspid regurgitation. PULMONIC VALVE The pulmonic valve is not well visualized. GREAT VESSELS The aortic root is normal in size. PERICARDIAL EFFUSION There is no pericardial effusion. <Conclusion> The left ventricle is normal size. There is normal left ventricular wall thickness. Left ventricle systolic function is mildly impaired. The Ejection Fraction is -40%. There is mild global hypokinesis. The apex appears akinetic.
[2017-01-06] MEDS: Enoxaparin 100 mg Syringe SC SCH (11:03)
[2017-01-06 11:30] LABS: ADD MANUAL DIFF? NO
[2017-01-06 11:41] LABS: ALB/GLOB RATIO 1.2 (1.1-1.8); ALKALINE PHOSPHATASE 76 U/L (38-133); ALT/SGPT 56 U/L (7-56); AST/SGOT 34 U/L (15-59); BILIRUBIN,TOTAL 0.5 mg/dL (0.2-1.3); BLOOD UREA NITROGEN 15 mg/dL (7-21); CALCIUM 9.7 mg/dL (8.4-10.5); CARBON DIOXIDE 27 mmol/L (21-33); CHLORIDE 101 mmol/L (98-107); GFR AFRICAN-AMERICAN > 60; GLUCOSE,RANDOM 102 mg/dL (70-110); POTASSIUM 4.5 mmol/L (3.6-5.0); SODIUM 137 mmol/L (132-148); TOTAL PROTEIN 8.2 g/dL (5.8-8.3)
[2017-01-06 11:43] LABS: BASO # 0.03 K/mm3 (0.0-2.0); BASO % 0.3 % (0.0-3.0); EOS # 0.1 (0.0-0.7); EOS % 1.1 % (1.5-5.0); GRAN # 6.24 (1.4-6.5); GRAN % 70.9 % (50.0-68.0); HEMATOCRIT 43.6 % (42.0-52.0); LYMPH # 1.6 (1.2-3.4); LYMPH % 17.8 % (22.0-35.0); MEAN CELL VOLUME 86.3 fL (80.0-105.0); MEAN CORPUSCULAR HEMOGLOBIN 29.1 pg (25.0-35.0); MEAN CORPUSCULAR HGB CONC 33.7 g/dl (31.0-37.0); MEAN PLATELET VOLUME 9.7 fl (7.0-11.0); MONO # 0.9 (0.1-0.6); MONO % 9.9 % (1.0-6.0); PLATELET COUNT 262 10^3/uL (120.0-450.0); RED CELL DISTRIBUTION WIDTH 13.7 % (11.5-14.5); WHITE BLOOD COUNT 8.8 10^3/ul (4.5-11.0)
[2017-01-06] MEDS ORDERED: POLYETHYLENE GLYCOL 3350 17 GM/Dose PACKET PO ONE (14:12)
--- NOTE | 2017-01-06 14:27 | PN ---
DATE: 01/06/2017 (For Dr. Romero) The patient has been chest pain free, no shortness of breath. PHYSICAL EXAMINATION: VITAL SIGNS: Blood pressure is 133/80, heart rate is in the 90s. NECK: Negative JVD. LUNGS: Without rales. HEART: With S1, S2. EXTREMITIES: Without edema. LABORATORY DATA: Hemoglobin is 14.7. Chemistries unremarkable, triglycerides 249. IMPRESSION: 1. Non-ST elevation myocardial infarction. 2. Unstable angina. 3. Coronary artery disease. 4. Hypertriglyceridemia. PLAN: Given these findings, the patient is for cardiac catheterization in the morning. We will disc ontinue Lovenox today, we will discontinue his ibuprofen today. In the morning, Dr. Romero will take over care. Chaitanya Ortega MD cc: [phone] TT: 01/06/2017 14:25:57 Confirmation # [id number] Dictation # [id number] heather
[2017-01-07 07:21] LABS: ADD MANUAL DIFF? NO
[2017-01-07 07:32] LABS: BASO # 0.03 K/mm3 (0.0-2.0); BASO % 0.3 % (0.0-3.0); EOS # 0.1 (0.0-0.7); EOS % 1.6 % (1.5-5.0); GRAN % 69.8 % (50.0-68.0); HEMATOCRIT 40.4 % (42.0-52.0); LYMPH # 1.6 (1.2-3.4); MEAN CELL VOLUME 85.6 fL (80.0-105.0); MEAN CORPUSCULAR HEMOGLOBIN 28.6 pg (25.0-35.0); MEAN CORPUSCULAR HGB CONC 33.4 g/dl (31.0-37.0); MEAN PLATELET VOLUME 10.2 fl (7.0-11.0); MONO # 0.9 (0.1-0.6); MONO % 10.3 % (1.0-6.0); PLATELET COUNT 226 10^3/uL (120.0-450.0); RED CELL DISTRIBUTION WIDTH 13.7 % (11.5-14.5); WHITE BLOOD COUNT 8.6 10^3/ul (4.5-11.0)
--- NOTE | 2017-01-07 07:41 | CP.PCM.PN ---
Subjective - Date & Time of Evaluation Date of Evaluation: 01/07/17 Time of Evaluation: 07:30 - Subjective Subjective: Pt was seen and examine at bedside. Pt has mild complaints of heel pain that he has been experiencing for the past month or so. No other acute complaints at this time. No acute or adverse events overnight as per nursing staff. Pt is ambulatory and tolerating diet well. Pt had a normally formed bm last night and is voiding regularly. Pt has remained NPO after midnight, lovenox was stopped yesterday. Pt is for cardiac catheterization this morning. Pt denied fever, chills, sob, chest pains, abdominal pains, n/v/d/c or urinary symptoms. Objective - Vital Signs/Intake and Output Vital Signs (last 24 hours): Temp Pulse Resp BP Pulse Ox 98.0 F 67 20 111/65 97 01/07/17 06:00 01/07/17 06:00 01/07/17 06:00 01/07/17 06:00 01/07/17 06:00 Intake and Output: 01/07/17 01/07/17 06:59 18:59 Intake Total 300 Output Total 500 Balance -200 - Medications Medications: Current Medications Acetaminophen (Tylenol 325mg Tab) 650 mg PO Q6H PRN PRN Reason: Fever >100.4 F Last Admin: 01/07/17 07:28 Dose: 650 mg Aspirin (Ecotrin) 81 mg PO DAILY [facility] Last Admin: 01/06/17 09:39 Dose: 81 mg Atorvastatin Calcium (Lipitor) 80 mg PO DIN [facility] Last Admin: 01/06/17 17:50 Dose: 80 mg Clopidogrel Bisulfate (Plavix) 75 mg PO DAILY [facility] Last Admin: 01/06/17 09:39 Dose: 75 mg Lisinopril (Zestril) 2.5 mg PO DAILY [facility] Last Admin: 01/06/17 09:39 Dose: 2.5 mg Metoprolol Tartrate (Lopressor) 25 mg PO BID [facility] Last Admin: 01/06/17 17:49 Dose: 25 mg Nitroglycerin (Nitrostat Sl Tab) 0.3 mg SL Q5M PRN PRN Reason: Chest pain - Labs Labs: 01/06/17 11:29 01/06/17 11:29 PT 10.7 Seconds (9.9-11.8) 01/04/17 20:52 INR 0.99 (0.93-1.08) 01/04/17 20:52 APTT 37.8 Seconds (23.7-30.8) H 01/05/17 04:20 - Constitutional Appears: No Acute Distress - Head Exam Head Exam: ATRAUMATIC, NORMAL INSPECTION, NORMOCEPHALIC - Eye Exam Eye Exam: EOMI, Normal appearance, PERRL - ENT Exam ENT Exam: Mucous Membranes Moist, Normal Exam - Neck Exam Neck Exam: Full ROM, Normal Inspection. absent: Lymphadenopathy - Respiratory Exam Respiratory Exam: Clear to Ausculation Bilateral, NORMAL BREATHING PATTERN - Cardiovascular Exam Cardiovascular Exam: REGULAR RHYTHM, +S1, +S2. absent: Murmur - GI/Abdominal Exam GI & Abdominal Exam: Soft, Normal Bowel Sounds. absent: Tenderness - Extremities Exam Extremities Exam: Full ROM, Normal Capillary Refill, Normal Inspection. absent : Joint Swelling, Pedal Edema - Back Exam Back Exam: NORMAL INSPECTION - Neurological Exam Neurological Exam: Alert, Awake, CN II-XII Intact, Normal Gait, Oriented x3 - Psychiatric Exam Psychiatric exam: Normal Affect, Normal Mood - Skin Skin Exam: Dry, Intact, Normal Color, Warm Assessment and Plan - Assessment and Plan (Free Text) Assessment: 51 M with PMHx of afib previously on AC (not currently) and HTN presents with chest pain found to have NSTEMI. He is now asymptomatic. Patient will undergo cardiac catheterization Saturday with Dr. Romero. NSTEMI - Cardiac catheterization 01/07/[address] Romero - Currently on aspirin, plavix, lopressor, lisinopril, and lipitor - cardiology following, Dr. Romero -Telemetry - nsr - echo Demonstrated EF 32% - Heart Healthy Diet Hypertriglyceridemia - T - Lipitor 80mg Proph - lovenox held - Pepcid Seen reviewed and discussed with attending
[2017-01-07 07:45] LABS: ALB/GLOB RATIO 1.3 (1.1-1.8); ALKALINE PHOSPHATASE 75 U/L (38-133); ALT/SGPT 48 U/L (7-56); AST/SGOT 31 U/L (15-59); BILIRUBIN,TOTAL 0.5 mg/dL (0.2-1.3); BLOOD UREA NITROGEN 14 mg/dL (7-21); CARBON DIOXIDE 28 mmol/L (21-33); CHLORIDE 102 mmol/L (95-110); GFR AFRICAN-AMERICAN > 60; GLUCOSE,RANDOM 91 mg/dL (70-110); SODIUM 139 mmol/L (132-148); TOTAL PROTEIN 7.4 g/dL (5.8-8.3)
[2017-01-07] MEDS ORDERED: Lidocaine 2% Inj (20ml) ONE (11:25)
[2017-01-07] MEDS ORDERED: Iohexol 350mgl/ml 50 ML ONE (11:26)
[2017-01-07] MEDS ORDERED: Nitroglycerin 50mg in D5W 50 MG/250 ML BOTTLE IV ONE (11:26)
[2017-01-07] MEDS ORDERED: Iohexol 350 MG/100 ML VIAL ONE (11:26)
[2017-01-07] MEDS ORDERED: Midazolam 2 MG/2 ML VIAL ONE ×2 (12:27→13:19)
[2017-01-07] MEDS ORDERED: Eptifibatide 20 mg/10mL Inj IVP ONE (12:44)
[2017-01-07] MEDS ORDERED: Phenylephrine 10 mg/ml Inj ONE (12:55)
[2017-01-07] MEDS ORDERED: Sodium Chloride 0.9% 1,000 ML IV SCH (14:00)
--- NOTE | 2017-01-07 15:11 | CARD ---
APPROVED REPORT EKG Measurement Heart [id number] <Conclusion> Normal sinus rhythm T wave abnormality, consider inferior ischemia Abnormal ECG
[2017-01-07] MEDS ORDERED: Oxycodone/Acetaminophen 5/325 mg Tab PO STA (15:35)
--- NOTE | 2017-01-07 16:21 | PN ---
DATE: 01/07/2017 REASON FOR CONSULTATION AND FOLLOWUP: Acute coronary syndrome, [id number] myocardial infarction, status post multivessel PTCA. BRIEF CLINICAL HISTORY: This is a 51-year-old male with a strong family history of coronary artery d eneida, father and mother both had coronary artery bypass surgery, who said that 10 years ago he had cardiac catheterization at [facility] found to be negative, but the last 3-[address] [facility] keeps on having chest pain every 3-4 hours so patient came to the Emergency Room. Since the pat ient is in the hospital, no chest pain. The patient had a positive troponin suggestive of non-ST-seg ment myocardial infarction. The patient underwent cardiac cath and multivessel angioplasty was done. PHYSICAL EXAMINATION: VITAL SIGNS: Temperature afebrile, heart rate 80, blood pressure 148/98. HEENT: PERRLA. Extraocular muscles intact. NECK: Supple. No carotid bruits. No thyromegaly. CHEST: Clear to auscultation. HEART: S1, S2 regular. ABDOMEN: Soft. EXTREMITIES: Clubbing and cyanosis negative. BLOOD WORKUP: As follows: WBC 8.3, hemoglobin 13.____, hematocrit 40.4, platelet count 226. Chemis try shows sodium 139, potassium 4, chloride 102, carbon dioxide 28, anion gap of 13, BUN 14, creatini ne 0.4. Troponin 0.66. Phosphorus 0.24. IMPRESSION: [id number] myocardial infarction, coronary artery disease, status post cardiac casey terization, multivessel angioplasty done - left anterior descending 90%, right coronary artery 99%, r ight posterior descending artery 70-80% stenosis and circumflex of 80% stenosis. A drug-eluting sten t in right coronary artery and left anterior descending. Plain balloon angioplasty of circumflex and right posterior descending artery was done. RECOMMENDATIONS: Continue baby aspirin, continue Plavix mandatory for 1 year. Continue lipid loweri ng agent as well as beta dany and JO. Emphasis made on patient to emphasize weight reduction and compliance with medication. Thank you, ____, for providing the opportunity in taking care of this patient. Matt Romero MD cc:Lucia Brannon MD [phone] TT: 01/07/2017 14:46:07 Confirmation # [id number] Dictation # [id number] mn
[2017-01-07 16:28] LABS: BLOOD UREA NITROGEN 13 mg/dL (7-21); CALCIUM 9.1 mg/dL (8.4-10.5); CARBON DIOXIDE 26 mmol/L (21-33); CHLORIDE 101 mmol/L (98-107); GFR AFRICAN-AMERICAN > 60; GLUCOSE,RANDOM 164 mg/dL (70-110); POTASSIUM 3.8 mmol/L (3.6-5.0); SODIUM 136 mmol/L (132-148)
[2017-01-07] MEDS ORDERED: Bacitracin 500 Units/gm Oint Foilpak UD ONE (17:23)
--- NOTE | 2017-01-07 19:13 | CARD ---
APPROVED REPORT Procedure(s) performed: Left Heart Catheterization PTCA with Stenting of Mid RCA with FRANCESCO PTCA with Balloon Angioplasty of R PDA PTCA with Stenting of Mid LAD with FRANCESCO PTCA with Balloon Angioplasty of Cx ( OM2) HISTORY The patient is a 51 year-old male with a history of : tobacco history() : The patient is a former smoker , hypertension , dyslipidemia , Currently on No Meds admitted with ACS/ NSTEMI. INDICATION The indication(s) include : non-STEMI . CASE TECHNIQUE The patient was brought urgently to the Cardiac Catheterization Laboratory in a fasting state and was prepped and draped in a sterile manner. The left wrist was infiltrated with 2% Lidocaine subcutaneous anesthesia. A 6 Fr Glidesheath (Radial) sheath was inserted into the left radial artery without difficulty. Coronary angiography was performed using coronary diagnostic catheters. The left coronary system was accessed and visualized with a Diagnostic ,5 Fr JL 4 catheter. The right coronary system was accessed and visualized with a Diagnostic ,5 Fr JR 4 catheter. The left ventricle was accessed and visualized with a 5 Fr Pigtail 145 (Angled) catheter. Left ventricular/Aortic Valve gradient assessed on pullback. Left ventriculogram was performed in MINA projection. Closure device was deployed with a Fr TR Band (Large) without any complications. The patient tolerated the procedure well and there were no complications associated with the procedure. Vessel Analysis The patient's coronary anatomy is co-dominant. The left main coronary artery is a large size vessel with diffuse calcification noted throughout this vessel and without significant stenosis. The left main bifurcates to the left anterior descending and circumflex. The left anterior descending artery is a medium size vessel with diffuse calcification noted throughout this vessel and with significant stenosis. There is a 80-90% stenosis in the mid segment. The first diagonal branch is a medium size vessel with diffuse calcification noted throughout this vessel and without significant stenosis. The second diagonal branch is a small size vessel with diffuse calcification noted throughout this vessel and without significant stenosis. The circumflex artery is a medium size vessel with diffuse calcification noted throughout this vessel and without significant stenosis. There is a 50% stenosis in the mid segment. The first obtuse marginal branch is a large size vessel with diffuse calcification noted throughout this vessel and without significant stenosis. There is a 50% stenosis in the proximal segment. The second obtuse marginal branch is a medium size vessel with diffuse calcification noted throughout this vessel and with significant stenosis. There is a 80-90% stenosis in the mid segment. The right coronary artery is a large size vessel with diffuse calcification noted throughout this vessel and with significant stenosis. There is a 99% stenosis in the mid segment. The right posterior descending artery is a medium size vessel with diffuse calcification noted throughout this vessel and with significant stenosis. There is a 90% stenosis in the mid segment. Left Ventricle The left ventricle is enlarged in size with normal contractility. There was no cardiomyopathy. The left ventricular ejection fraction is estimated to be 55%. The left ventricular end diastolic pressure is 15 mmHg. There was no gradient across the aortic valve upon pullback. PCI Technique Lesion Anticoagulation was achieved with Heparin. Percutaneous coronary intervention was performed on the mid right coronary artery. The lesion stenosis prior to intervention was 99% with YONI 2 flow. A 6 Fr JR 3.5 Guide Catheter was used to engage the ostium. BALLOON DILATION A Balloon catheter 2.0 x 15 mm Sprinter RX was inserted and inflated up to 5.00atm for 32seconds. STENT DEPLOYMENT A drug-eluting stent 3.5 x 15 mm Resolute FRANCESCO was inserted and inflated up to 12atm for 20seconds. POST STENT DEPLOYMENT BALLOON DILATION A Balloon catheter 3.75 x 12 mm Sprinter NC was inserted and inflated up to 14atm for 20seconds. Final angiography reveals 0 % stenosis with YONI 3 flow. PCI Technique Lesion 2 Percutaneous Coronary Intervention was performed on the mid right Posterior Descending coronary artery. The lesion stenosis prior to intervention was 80-90% with YONI flow. A 6 Fr JR 3.5 Guide Catheter was used to engage the RCA ostium. BALLOON DILATION A Balloon catheter 2.0 x 15 mm Sprinter RX was inserted and inflated up to 6-8atm for 30-60seconds. Multiple inflation 6-8 atms for 30-60 seconds Final angiography reveals 20 % stenosis with YONI 3 flow. PCI Technique Lesion 3 Percutaneous Coronary Intervention was performed on the mid left anterior descending artery segment. The lesion stenosis prior to intervention was 80% with YONI 2 flow. A 6 Fr XB 3 Guide Catheter was used to engage the ostium. BALLOON DILATION A Balloon catheter 2.0 x 15 mm Sprinter RX was inserted and inflated up to 10.00atm for 10seconds. STENT DEPLOYMENT A drug-eluting stent 2.75 x 22 mm Resolute FRANCESCO was inserted and inflated up to 12atm for 20seconds. Final angiography reveals 0 % stenosis with YONI 3 flow. PCI Technique Lesion 4 Percutaneous Coronary Intervention was performed on the distal circumflex artery segment ( OM2). The lesion stenosis prior to intervention was 80% with YONI 2 flow. A 6 Fr XB 3 Guide Catheter was used to engage the ostium. BALLOON DILATION A Balloon catheter 2.0 x 15 mm Sprinter RX was inserted and inflated up to 6-8 ruddy for 30-45seconds. Multiple infaltion done with 6-8 atmos for 30-45 seconds. Final angiography reveals 0 % stenosis with YONI 3 flow. Conclusion Triple Vessel Disease, with very Poor Distal Taget not Suitable for CABG. Successful PTCA with FRANCESCO Of Mid RCA and LAD Successful POBA of Distal R PDA and OM2 Recommendations Smoking Cessation Cardiac Rehabilitation ReferralDaily ASA with Plavix for at least one year Aggressive Medical TherapyCardiac Risk Reduction Program Weight Loss Reduction Program CC; Lucia Badillo MD.
[2017-01-07 19:22] LABS: ADD MANUAL DIFF? NO
[2017-01-07 19:35] LABS: BASO # 0.01 K/mm3 (0.0-2.0); BASO % 0.1 % (0.0-3.0); EOS # 0.1 (0.0-0.7); EOS % 0.8 % (1.5-5.0); GRAN # 5.62 (1.4-6.5); GRAN % 75.3 % (50.0-68.0); HEMATOCRIT 41.8 % (42.0-52.0); LYMPH # 1.3 (1.2-3.4); MEAN CELL VOLUME 86.2 fL (80.0-105.0); MEAN CORPUSCULAR HEMOGLOBIN 29.5 pg (25.0-35.0); MEAN CORPUSCULAR HGB CONC 34.2 g/dl (31.0-37.0); MEAN PLATELET VOLUME 10.5 fl (7.0-11.0); MONO # 0.5 (0.1-0.6); MONO % 6.8 % (1.0-6.0); PLATELET COUNT 238 10^3/uL (120.0-450.0); RED CELL DISTRIBUTION WIDTH 13.7 % (11.5-14.5); WHITE BLOOD COUNT 7.5 10^3/ul (4.5-11.0)
[2017-01-07 20:14] VITALS: RESP 20
[2017-01-08 00:57] VITALS: O2SAT 96
[2017-01-08 06:00] LABS: ADD MANUAL DIFF? NO
[2017-01-08 06:05] LABS: BASO # 0.03 K/mm3 (0.0-2.0); BASO % 0.3 % (0.0-3.0); EOS # 0.1 (0.0-0.7); EOS % 1.5 % (1.5-5.0); GRAN # 6.61 (1.4-6.5); GRAN % 71.4 % (50.0-68.0); HEMATOCRIT 39.7 % (42.0-52.0); LYMPH # 1.5 (1.2-3.4); LYMPH % 16.4 % (22.0-35.0); MEAN CELL VOLUME 85.9 fL (80.0-105.0); MEAN CORPUSCULAR HEMOGLOBIN 28.8 pg (25.0-35.0); MEAN CORPUSCULAR HGB CONC 33.5 g/dl (31.0-37.0); MONO % 10.4 % (1.0-6.0); PLATELET COUNT 216 10^3/uL (120.0-450.0); RED CELL DISTRIBUTION WIDTH 13.7 % (11.5-14.5); WHITE BLOOD COUNT 9.3 10^3/ul (4.5-11.0)
[2017-01-08 06:52] VITALS: BP 127/80; PULSE 69; TEMP 98
[2017-01-08 07:04] LABS: ALB/GLOB RATIO 1.3 (1.1-1.8); ALKALINE PHOSPHATASE 72 U/L (38-133); ALT/SGPT 54 U/L (7-56); AST/SGOT 50 U/L (15-59); BILIRUBIN,TOTAL 0.5 mg/dL (0.2-1.3); BLOOD UREA NITROGEN 14 mg/dL (7-21); CALCIUM 8.7 mg/dL (8.4-10.5); CARBON DIOXIDE 27 mmol/L (21-33); CHLORIDE 103 mmol/L (98-107); GFR AFRICAN-AMERICAN > 60; GLUCOSE,RANDOM 92 mg/dL (70-110); POTASSIUM 4.2 mmol/L (3.6-5.0); SODIUM 137 mmol/L (132-148); TOTAL PROTEIN 7.2 g/dL (5.8-8.3)
--- NOTE | 2017-01-08 07:51 | CP.PCM.DIS ---
Provider - Provider Date of Admission: 01/04/17 21:26 Attending physician: Lucia Brannon MD Primary care physician: Jad Hurtado MD Consults: Cardiology - Dr. Romero Time Spent in preparation of Discharge (in minutes): 45 Hospital Course - Lab Results Lab Results: Most Recent Lab Values WBC 9.3 10^3/ul (4.5-11.0) D 01/08/17 05:15 RBC 4.62 10^6/uL (3.5-6.1) 01/08/17 05:15 Hgb 13.3 gm/dL (14.0-18.0) L 01/08/17 05:15 Hct 39.7 % (42.0-52.0) L 01/08/17 05:15 MCV 85.9 fL (80.0-105.0) 01/08/17 05:15 MCH 28.8 pg (25.0-35.0) 01/08/17 05:15 MCHC 33.5 g/dl (31.0-37.0) 01/08/17 05:15 RDW 13.7 % (11.5-14.5) 01/08/17 05:15 Plt Count 216 10^3/uL (120.0-450.0) 01/08/17 05:15 MPV 10.0 fl (7.0-11.0) 01/08/17 05:15 Gran % 71.4 % (50.0-68.0) H 01/08/17 05:15 Lymph % (Auto) 16.4 % (22.0-35.0) L 01/08/17 05:15 [place] % (Auto) 10.4 % (1.0-6.0) H 01/08/17 05:15 Eos % (Auto) 1.5 % (1.5-5.0) 01/08/17 05:15 Baso % (Auto) 0.3 % (0.0-3.0) 01/08/17 05:15 Gran # 6.61 (1.4-6.5) H 01/08/17 05:15 Lymph # 1.5 (1.2-3.4) 01/08/17 05:15 Churchill # 1.0 (0.1-0.6) H 01/08/17 05:15 Eos # 0.1 (0.0-0.7) 01/08/17 05:15 Baso # 0.03 K/mm3 (0.0-2.0) 01/08/17 05:15 PT 10.7 Seconds (9.9-11.8) 01/04/17 20:52 INR 0.99 (0.93-1.08) 01/04/17 20:52 APTT 37.8 Seconds (23.7-30.8) H 01/05/17 04:20 D-Dimer, Quantitative 0.35 mg/L FEU (0-0.50) 01/04/17 20:52 Sodium 137 mmol/L (132-148) 01/08/17 05:15 Potassium 4.2 mmol/L (3.6-5.0) 01/08/17 05:15 Chloride 103 mmol/L (98-107) 01/08/17 05:15 Carbon Dioxide 27 mmol/L (21-33) 01/08/17 05:15 Anion Gap 11 (10-20) 01/08/17 05:15 BUN 14 mg/dL (7-21) 01/08/17 05:15 Creatinine 0.8 mg/dL (0.5-1.4) 01/08/17 05:15 Est GFR ( Amer) > 60 01/08/17 05:15 Est GFR (Non-Af Amer) > 60 01/08/17 05:15 Random Glucose 92 mg/dL (70-110) 01/08/17 05:15 Hemoglobin A1c 5.8 % (4.2-6.5) 01/04/17 23:10 Calcium 8.7 mg/dL (8.4-10.5) 01/08/17 05:15 Magnesium 1.8 mg/dL (1.7-2.2) 01/04/17 20:03 Total Bilirubin 0.5 mg/dL (0.2-1.3) 01/08/17 05:15 AST 50 U/L (15-59) 01/08/17 05:15 ALT 54 U/L (7-56) 01/08/17 05:15 Alkaline Phosphatase 72 U/L (38-133) 01/08/17 05:15 Lactate Dehydrogenase 457 U/L (333-699) 01/04/17 20:03 Total Creatine Kinase 138 U/L (35-230) 01/04/17 20:03 Troponin I 0.66 ng/mL H* D 01/05/17 04:05 NT-Pro-B Natriuret Pep 67.5 pg/mL (0-450) 01/04/17 20:03 Total Protein 7.2 g/dL (5.8-8.3) 01/08/17 05:15 Albumin 4.0 g/dL (3.0-4.8) 01/08/17 05:15 Globulin 3.2 gm/dL 01/08/17 05:15 Albumin/Globulin Ratio 1.3 (1.1-1.8) 01/08/17 05:15 Triglycerides 249 mg/dL (35-160) H 01/05/17 04:20 Cholesterol 156 mg/dL (130-200) 01/05/17 04:20 LDL Cholesterol Direct 106 mg/dL (0-129) 01/05/17 04:20 HDL Cholesterol 31 mg/dL (29-60) 01/05/17 04:20 TSH 3rd Generation 1.87 mIU/mL (0.46-4.68) 01/04/17 23:10 Urine Color Yellow (YELLOW) 01/04/17 21:15 Urine Appearance Sl cloudy (CLEAR) 01/04/17 21:15 Urine pH 6.0 (4.7-8.0) 01/04/17 21:15 Ur Specific [place] >= 1.030 (1.005-1.035) 01/04/17 21:15 Urine Protein 30 mg/dL (<30 mg/dL) H 01/04/17 21:15 Urine Glucose (UA) Negative mg/dL (NEGATIVE) 01/04/17 21:15 Urine Ketones Negative mg/dL (NEGATIVE) 01/04/17 21:15 Urine Blood Large (NEGATIVE) H 01/04/17 21:15 Urine Nitrate Negative (NEGATIVE) 01/04/17 21:15 Urine Bilirubin Negative (NEGATIVE) 01/04/17 21:15 Urine Urobilinogen 0.2 E.U./dL (<1 E.U./dL) 01/04/17 21:15 Ur Leukocyte Esterase Trace Shaw/uL (NEGATIVE) H 06/09/17 21:15 Urine RBC Tntc /hpf (0-2) 01/04/17 21:15 Urine WBC 15 - 20 /hpf (0-6) 01/04/17 21:15 Ur Epithelial Cells 0 - 2 /hpf (0-5) 01/04/17 21:15 Calcium Oxalate Crystal Few /hpf 01/04/17 21:15 Urine Bacteria Few (NEG) 01/04/17 21:15 Urine Opiates Screen Negative (NEGATIVE) 01/04/17 22:47 Urine Methadone Screen Negative (NEGATIVE) 01/04/17 22:47 Ur Barbiturates Screen Negative (NEGATIVE) 01/04/17 22:47 Ur Phencyclidine Scrn Negative (NEGATIVE) 01/04/17 22:47 Ur Amphetamines Screen Negative (NEGATIVE) 01/04/17 22:47 U Benzodiazepines Scrn Negative (NEGATIVE) 01/04/17 22:47 U Oth Cocaine Metabols Negative (NEGATIVE) 01/04/17 22:47 U Cannabinoids Screen Negative (NEGATIVE) 01/04/17 22:47 RPR Nonreactive (NONREACTIVE) 01/04/17 23:10 HIV 1&2 Ag/Ab, 4th Gen Nonreactive (Nonreactive) 01/04/17 23:10 - Hospital Course Hospital Course: Pt is a 51yo M who has no previous medical history who is presenting to the hospital for a 2d history of constant left sided chest pain that woke him up from sleep. In the ED he was found to have a troponin of .24. He was started on a heparin drip, given plavix loading dose, beta dany, statin, and JO. He will be admitted to telemetry for NSTEMI. Cardiology Consulted, Dr. Rome for Cardiac cath - performed 01/07/17. Echo revealed EF of 32%. Patient started on aspirin, plavix, lopressor, lisinopril and lipitor. TG are 249. Pt tolerated cardiac cath well, had 2 stents placed in RCA, and LAD, as well as 2 sites of balloon angioplasty. Pt HD stable after procedure, no signs of bleeding or hematoma. Pt was feeling much better this morning. Dr. Romero, [employer] cleared for dc, recommended pt remain on betablocker, acei, plavix, asa, and lipitor. Pt is to fu with PMD Dr. Dawn. Pt is to fu with cardiology Dr. Romero within 1 week. Discharge Exam - Head Exam Head Exam: ATRAUMATIC, NORMAL INSPECTION, NORMOCEPHALIC - Eye Exam Eye Exam: EOMI, Normal appearance, PERRL Pupil Exam: NORMAL ACCOMODATION, PERRL - ENT Exam ENT Exam: Mucous Membranes Moist - Respiratory Exam Respiratory Exam: Clear to PA & Lateral, NORMAL BREATHING PATTERN, UNREMARKABLE - Cardiovascular Exam Cardiovascular Exam: REGULAR RHYTHM, +S1, +S2 - GI/Abdominal Exam GI & Abdominal Exam: Normal Bowel Sounds - Extremities Exam Extremities exam: normal inspection - Back Exam Back exam: NORMAL INSPECTION - Neurological Exam Neurological exam: Alert, CN II-XII Intact, Normal Gait, Oriented x3, Reflexes Normal - Psychiatric Exam Psychiatric exam: Normal Affect, Normal Mood - Skin Skin Exam: Dry, Intact, Normal Color, Warm Discharge Plan - Discharge Medications Prescriptions: Aspirin [Ecotrin] 81 mg PO DAILY 30 Days Atorvastatin [Lipitor] 40 mg PO DIN 30 Days Clopidogrel [Plavix] 75 mg PO DAILY 30 Days Lisinopril [Zestril] 2.5 mg PO DAILY 30 Days Metoprolol Tartrate [Lopressor] 25 mg PO BID 30 Days Nitroglycerin [Nitrostat SL Tab] 0.3 mg SL Q5M PRN #1 PRN Reason: Chest pain - Follow Up Plan Condition: FAIR Disposition: HOME/ ROUTINE Instructions: Myocardial Infarction (DC), Myocardial Infarction (GEN) Additional Instructions: 1. Pt to fu with PMD, as per pt will set up with Dr. Dawn, within 3-5 days 2. Pt to fu with cardiology Dr. Romero within 3-5 days 3. Pt to follow a heart healthy diet and get plenty of exercise 4. Pt welcomed to return [place] [facility] if develop acute symptoms Referrals: Jad Hurtado MD [Primary Care Provider] - Matt Romero MD [Staff Provider] -
--- NOTE | 2017-01-08 10:46 | PN ---
DATE: 01/08/2017 REASON FOR CONSULTATION AND FOLLOWUP: Acute coronary syndrome, [id number] myocardial infarction, status post multivessel PTCA. BRIEF CLINICAL HISTORY: This is a 51-year-old male with a strong family history of coronary artery d isleo; father and mother both have coronary artery disease. Admitted with unstable angina and under went cardiac catheterization, multivessel angioplasty including a stent in mid LAD, stent drug-elutin g in RCA mid and a plain balloon angioplasty (POBA) of distal RPDA as well as OM2. The patient is st able, very noncompliant, keeps on pulling the TR band at the access site. This morning, stable. Den ies any chest pain, shortness of breath, any palpitation. Local examination of the TR band with acce ss site looks okay. Distal 1+ pulse. PHYSICAL EXAMINATION: VITAL SIGNS: Temperature afebrile, heart rate 69, blood pressure 127/80. HEENT: PERRLA. Extraocular muscles intact. NECK: Supple. No carotid bruits or thyromegaly. CHEST: Clear to auscultation. HEART: S1, S2 regular. ABDOMEN: Soft. EXTREMITIES: Clubbing and cyanosis negative. LABORATORY DATA: WBC 9.3, hemoglobin 13.3, hematocrit 39.7, platelet count 216. Chemistry shows sod ium ____, potassium 4.2, chloride 103, carbon dioxide 27, anion gap of 11, BUN 14, creatinine 0.8. T otal protein 7.2, albumin 4, albumin/globulin ratio 1.3. IMPRESSION: [id number] myocardial infarction, status post multivessel percutaneous transluminal coronary angioplasty, family history significant for coronary artery disease, prediabetic, morbid obe sity, body mass index 35 kg/m2. RECOMMENDATION: Continue mandatory aspirin and Plavix for 1 year, preferably extended period of time . Complete cessation of smoking. Emphasis on weight reduction, compliance with the medication, augie fication of lifestyle recommended, and emphasis on significant weight reduction, and continue atorvas tatin and metoprolol and lisinopril. Thank you, Dr. Brannon, for providing the opportunity in taking care of this patient. Will follow with you. Will discontinue telemetry. Possible discharge today. Discussed with the resident taking care of the patient. Matt Romero MD cc:Lucia Brannon MD 305 TT: 01/08/2017 10:45:30 Confirmation # [id number] Dictation # [id number]
== END 2017-01-08 09:41 | disposition home or self-care (01) | DRG 853 ==
LOC: ED 19:46 → MERGE 21:26 → ERH 21:26 → 2RSO 01-05 01:04
PROVIDERS: ADMIT Hospitalist; ATTEND Internal Medicine
PROC: 027135Z Dilation of Coronary Artery, Two Arteries with Two Drug-eluting Intraluminal Devices, Percutaneous Approach (ICD-10-PCS; principal; 2017-01-07)
PROC: 02703ZZ Dilation of Coronary Artery, One Artery, Percutaneous Approach (ICD-10-PCS; 2017-01-07)
PROC: 4A023N7 Measurement of Cardiac Sampling and Pressure, Left Heart, Percutaneous Approach (ICD-10-PCS; 2017-01-07)
PROC: B2051ZZ Plain Radiography of Left Heart using Low Osmolar Contrast (ICD-10-PCS; 2017-01-07)
PROC: B2011ZZ Plain Radiography of Multiple Coronary Arteries using Low Osmolar Contrast (ICD-10-PCS; 2017-01-07)
PROC: 3E033PZ Introduction of Platelet Inhibitor into Peripheral Vein, Percutaneous Approach (ICD-10-PCS; 2017-01-07)
DX: I21.4 Non-ST elevation (NSTEMI) myocardial infarction (principal); I25.110 Atherosclerotic heart disease of native coronary artery with unstable angina pectoris; I10 Essential (primary) hypertension; E78.1 Pure hyperglyceridemia; I48.91 Unspecified atrial fibrillation; R73.03 Prediabetes; Z68.35 Body mass index [BMI] 35.0-35.9, adult; E66.01 Morbid (severe) obesity due to excess calories; Z82.49 Family history of ischemic heart disease and other diseases of the circulatory system; Z87.891 Personal history of nicotine dependence